=== PATIENT | male | born 1965 | race Caucasian/White ===

== ENCOUNTER 2018-04-27 21:54 | Emergency (ER) | payer BC ==
--- NOTE | 2018-04-27 22:55 | RAD ---
RIGHT ANKLE: 04/27/18 Three views. HISTORY: Injury. Oblique fracture of the distal fibula. Transverse displaced fracture of the medial malleolus. I cannot exclude subtle fracture of the posterior malleolus. IMPRESSION: Fractures of lateral and medial malleolus. Question posterior malleolar fracture. POS: [facility]
[2018-04-27] MEDS ORDERED: traMADol HCl 50 MG TAB ONE (23:10)
[2018-04-27] MEDS ORDERED: Ibuprofen 800 MG TAB ONE (23:11)
--- NOTE | 2018-04-27 23:40 | RAD ---
RIGHT TIBIA AND FIBULA: 04/27/18 INDICATION: Injury. IMPRESSION: There is an obliquely oriented fracture involving the distal fibula with mild displacement. Fracture of the medial malleolus of the distal tibia is better seen on ankle films. There is a question of a p osterior malleolar fracture as noted on ankle films. The proximal and mid tibia and fibula are intact . POS: [facility]
[2018-04-28] MEDS ORDERED: Morphine 4 MG/ML VIAL ONE (00:05)
== END 2018-04-28 00:44 | disposition home or self-care (01) ==
LOC: ERS 21:54
DX: S82.841A Displaced bimalleolar fracture of right lower leg, initial encounter for closed fracture (principal); V00.131A Fall from skateboard, initial encounter; Y93.51 Activity, roller skating (inline) and skateboarding
CPT/HCPCS: 29515; 96372; J2270

== ENCOUNTER 2018-05-03 09:31 | Day surgery (SDC) | payer BC ==
[2018-05-02 11:27] VITALS: BMI 30.8
[2018-05-03] MEDS ORDERED: Fentanyl 100 MCG/2 ML VIAL ONE (10:22)
[2018-05-03] MEDS ORDERED: Midazolam HCl 2 mg/2 ml Vial ONE (10:22)
[2018-05-03 10:29] LABS: #Eosinphils 0.1 thou/uL (0.0-0.7); #Lymphocytes 1.8 thou/uL (1.20-3.40); #Monocytes 0.7 thou/uL (0.11-0.59); #Neutrophils 6.4 thou/uL (1.40-6.50); %Basophils 0.3 % (0.0-1.0); %Eosinophils 1.1 % (0.0-10.0); %Lymphocytes 20.1 % (21.0-51.0); %Monocytes 8.2 % (0.0-10.0); %Neutrophils 70.3 % (42.0-75.0); Hemoglobin 16.1 g/dL (14.0-18.0); Mean Corpuscular HGB CONC 33.5 g/dL (32.0-36.0); Mean Corpuscular Hemoglobin 30.8 pg (27.0-31.0); Mean Corpuscular Volume 92.1 fL (78.0-98.0); Mean Platelet Volume 7.1 fL (7.4-10.4); Platelet Count 411 thou/uL (130-400); RBC Distribution Width 11.6 % (11.5-14.5); Red Blood Cell (RBC) Count 5.22 mill/uL (4.70-6.10); White Blood Cell (WBC) Count 9.1 thou/uL (4.8-10.8)
[2018-05-03] MEDS ORDERED: CEFAZOLIN 2 GM/50 ML BAG ONE (11:02)
[2018-05-03] MEDS ORDERED: Ropivacaine 0.2% 550 ML 550 ML NERVE BLCK SCH ×2 (11:20→11:21)
[2018-05-03] MEDS ORDERED: traMADol HCl 50 MG TAB PO PRN ×2 (11:20)
[2018-05-03] MEDS ORDERED: Ketorolac Tromethamine 30 MG/ML VIAL IVP PRN (11:20)
[2018-05-03] MEDS ORDERED: Zolpidem Tartrate 5 MG TAB PO PRN (11:20)
[2018-05-03] MEDS ORDERED: HYDROcodone/Acetaminophen 10/325 mg Tablet PO PRN ×2 (11:20)
[2018-05-03] MEDS ORDERED: Ondansetron PF 4 MG/2 ML Vial IVP PRN (11:20)
[2018-05-03] MEDS ORDERED: Promethazine HCl 25 MG/ML VIAL IM PRN (11:20)
[2018-05-03] MEDS ORDERED: Fentanyl 100 MCG/2 ML VIAL IV PRN (11:21)
[2018-05-03] MEDS ORDERED: ROPIVACAINE HCL NERVE BLCK SCH ×2 (15:15→15:45)
[2018-05-03] MEDS ORDERED: SODIUM CHLORIDE 0.9% NERVE BLCK SCH ×2 (15:15→15:45)
[2018-05-03] MEDS ORDERED: Ropivacaine 0.5% HCl/PF (150 MG/30 ML VIAL) ONE (15:25)
[2018-05-03] MEDS ORDERED: Ropivacaine 0.2% HCl/PF (40 MG/20 ML VIAL) ONE (15:25)
--- NOTE | 2018-05-03 15:45 | RAD ---
RIGHT ANKLE TWO VIEWS: HISTORY: Fractures of the medial and lateral malleoli. FINDINGS/IMPRESSION: Two spot fluoroscopic intraoperative images of the right ankle demonstrate interval reduction and int ernal fixation of the bimalleolar fractures seen on exam of 04/27/18. POS: [facility]
[2018-05-03] MEDS ORDERED: Lidocaine 1% PF 5 ML VIAL ONE (22:51)
[2018-05-03] MEDS ORDERED: PROPOFOL 200 MG/20 ML VIAL ONE (22:51)
--- NOTE | 2018-05-04 06:14 | OP ---
DATE OF PROCEDURE: 05/03/2018 PREOPERATIVE DIAGNOSIS: Right bimalleolar ankle fracture. POSTOPERATIVE DIAGNOSIS: Right trimalleolar ankle fracture. PROCEDURES PERFORMED: 1. Open reduction and internal fixation of bimalleolar ankle fracture, closed treatment of posterior malleolus. 2. Short-leg splints. ETHICS MANAGER: Michael Palacio PA-C. ANESTHESIOLOGIST: Dr. Thomas. ANESTHESIA: The patient received LMA with a lateral sciatic and an adductor canal, indwelling catheter. ESTIMATED BLOOD LOSS: 30 mL. TOURNIQUET TIME: 60 minutes at 300 mmHg. ANTIBIOTICS: Ancef 2 g. IMPLANTS: 7-hole 1/3 tubular plate with three 4.0 cancellous screws, four 3.5 cortical screws, and two 3.5 cannulated screws. COMPLICATIONS: None. HISTORY OF PRESENT ILLNESS: Mr. Loredo is a pleasant 52-year-old male, status post injury to the ankle while roller-skating. The date of injury was last week on Monday night. On 04/27/2018, the patient was brought into the clinic and noted to have a bimalleolar ankle fracture, concerned for posttraumatic fracture. I discussed with the patient the risks and benefits of open reduction and internal fixation of his bimalleolar ankle fracture to include pain, scar, bleeding, infection, damage to vital structures, decreased range of motion and strength, continued pain despite surgical intervention, nonunion, malunion, hardware failure, and need for further surgery. He understood these risks and benefits and elected to proceed. DESCRIPTION OF PROCEDURE: Time-out was performed designating the patient's right lower extremity as the operative site, based on site, consents, and markings. After time-out, the patient's right lower extremity was prepped and draped in a sterile fashion. Tourniquet was let up and left for a total of 60 minutes. I made a lateral incision down to the fibula, so i obliques, spiral moving from proximally, posterior to anterior. We clamped across, placed a lag screw for compression of the fracture fragment with 22 mm 3.5 screw. We drilled. We then came back with a plate and placed three 3.5 cortical proximally and three 4.0 distally. We then moved medially obliquely down through skin, bluntly dissected, ensured we stayed away from the vein, came down onto the fracture fragment and elevated it, removed the clot. We used a drill hole and clamped and compressed across. We invested couple of pin tags. We already had good placement with 2 pins. Using our cannulated guide, we then drilled for two 3.5 and placed two 3.5 cannulated screws for medial malleolus fracture. The posterior malleolus was noted on the radiographs, but it was a small fragment, much less than 5% of the joint line and was left, treated nonoperatively. We then washed, closed with 0, 2-0 and pham. The patient was placed in a short-leg splint. He will be nonweightbearing. Follow up me in about 10 to 14 days. Ice, elevation; will be sent home with [place] for pain relief. Job ID: [id number]
== END 2018-05-03 17:36 | disposition home or self-care (01) ==
LOC: SDC 09:31
PROVIDERS: ATTEND Orthopaedic Surgery
PROC: 0QSJ04Z Reposition Right Fibula with Internal Fixation Device, Open Approach (ICD-10-PCS; principal; 2018-05-03)
PROC: 0QSG04Z Reposition Right Tibia with Internal Fixation Device, Open Approach (ICD-10-PCS; principal; 2018-05-03)
DX: S82.841A Displaced bimalleolar fracture of right lower leg, initial encounter for closed fracture (principal); M19.90 Unspecified osteoarthritis, unspecified site; Y93.51 Activity, roller skating (inline) and skateboarding; Z98.890 Other specified postprocedural states
CPT/HCPCS: 76001; 85025; A4306; C1713; C1769; J2001; J2250; J2704; J2795; J3010; J7050

== ENCOUNTER 2020-01-27 14:49 | Outpatient (CLI) | payer BC ==
--- NOTE | 2020-01-27 16:37 | CT ---
CT CERVICAL SPINE WITHOUT CONTRAST: Date: 01/27/2020 INDICATION: Neck pain. Right arm pain. FINDINGS: Postoperative changes are noted with anterior fusion changes at C5, C6, and C7. Anterior plate and sc rews transfix these levels and interbody fusion is noted. No evidence of hardware loosening. There is prominent spondylosis at C6-7. The other cervical vertebra maintain height and alignment. The other disc spaces are preserved. Findings at each level are described: C2-3: No significant disc bulge or spondylosis. C3-4: Mild disc bulge and spondylosis efface the anterior subarachnoid space and abut the anterior c ord. Mild right foraminal narrowing due to uncinate hypertrophy. C4-5: Disc bulge and spondylytic change abut the anterior cord centrally. There is a small anterior spur indenting the anterior cord. This small osteophyte projects from the posterior aspect of the C5 vertebra just below the C4-5 disc. No significant foraminal stenosis at C4-5. C5-6: Mild spondylosis without cord impingement. No significant foraminal stenosis. C6-7: Posterior spondylosis is more pronounced and these changes appear to mildly compress the anter ior cord. No significant foraminal stenosis. C7-T1: Exam is more limited due to artifact from the shoulders. However, there appears to be mild sp ondylosis without evidence of cord impingement. No foraminal stenosis. IMPRESSION: 1. Postop changes at C5, C6, and C7 as described above. Spondylosis at these levels impinge on the c ord, most pronounced at C6 and C6-7. There is a posterior osteophyte from the C6 vertebra just above the C6-7 disc that impinges on the anterior cord. 2. Tiny osteophyte at C5 just below the C4-5 disc space abuts the anterior cord as described above. POS: [facility]
== END 2020-01-27 14:50 | disposition home or self-care (01) ==
LOC: BICCT 14:49
PROVIDERS: ATTEND Surgery
DX: M50.10 Cervical disc disorder with radiculopathy, unspecified cervical region (principal); M48.02 Spinal stenosis, cervical region; M47.22 Other spondylosis with radiculopathy, cervical region; M25.78 Osteophyte, vertebrae; Z98.890 Other specified postprocedural states
CPT/HCPCS: 72125

== ENCOUNTER 2020-02-24 08:23 | Outpatient (CLI) | payer BC, OTHER ==
[2020-02-24 16:57] LABS: Hemoglobin 15.1 g/dL (14.0-18.0); Mean Corpuscular HGB CONC 33.7 g/dL (32.0-36.0); Mean Corpuscular Hemoglobin 31.9 pg (27.0-31.0); Mean Corpuscular Volume 94.9 fL (78.0-98.0); Mean Platelet Volume 7.8 fL (7.4-10.4); Platelet Count 288 thou/uL (130-400); RBC Distribution Width 11.2 % (11.5-14.5); Red Blood Cell (RBC) Count 4.71 mill/uL (4.70-6.10); White Blood Cell (WBC) Count 6.6 thou/uL (4.8-10.8)
[2020-02-24 16:59] LABS: INR-International Normal Ratio 0.9; PTT 30.7 sec (22.9-36.1); Prothrombin Time 12.4 sec (12.0-14.7)
[2020-02-24 18:09] LABS: Anion Gap 14 mmol/L (10-20); BUN (Urea Nitrogen) 18 mg/dL (8.4-25.7); Calc. Creatinine Clearance 0 mL/min (70-130); Calcium 9.1 mg/dL (7.8-10.44); Carbon Dioxide 23 mmol/L (22-29); Chloride 107 mmol/L (98-107); Estimated GFR-MDRD 69; Glucose 122 mg/dL (70-105); Sodium 140 mmol/L (136-145)
--- NOTE | 2020-02-25 09:05 | EKG ---
Test Reason : Blood Pressure : / mmHG Vent. Rate : 067 BPM Atrial Rate : 067 BPM P-R Int : 168 ms QRS Dur : 100 ms QT Int : 398 ms P-R-T Axes : 043 030 033 degrees QTc Int : 420 ms Normal sinus rhythm Normal ECG No previous ECGs available Confirmed by DR. Andrzej VERGARA ([id number]) on 02/25/2020 9:05:38 AM Referred By: DALI Confirmed By:DR. Andrzej VERGARA
[2020-02-26 12:10] LABS: SARS-CoV-2 MS2 Positive; SARS-CoV-2 N Gene Negative; SARS-CoV-2 S Gene Negative; SARS-CoV-2 by NAA Not Detected (NotDetected); SARS-CoV-2 orf1ab Negative
== END 2020-02-24 08:24 | disposition home or self-care (01) ==
LOC: LABBT 08:23
PROVIDERS: ATTEND Surgery
DX: Z01.818 Encounter for other preprocedural examination (principal); M50.20 Other cervical disc displacement, unspecified cervical region; M48.02 Spinal stenosis, cervical region; Z20.828 Contact with and (suspected) exposure to other viral communicable diseases
CPT/HCPCS: 80048; 85027; 85610; 85730; 87635; 93005; 93010; U0003

== ENCOUNTER 2020-02-24 14:00 | Inpatient (IN) | payer BC, OTHER ==
[2020-02-26 12:15] VITALS: BMI 29.9
[2020-02-27] MEDS ORDERED: Fentanyl 100 MCG/2 ML VIAL ONE ×2 (07:13→08:34)
[2020-02-27] MEDS ORDERED: HYDROmorphone 0.5 MG/0.5 ML SYRINGE ONE (07:14)
[2020-02-27] MEDS ORDERED: Thrombin 5000 UNITS/5 ML VIAL ONE (07:52)
[2020-02-27] MEDS ORDERED: Famotidine/PF 20 mg/2ml Vial ONE (08:34)
[2020-02-27] MEDS ORDERED: Midazolam HCl 2 mg/2 ml Vial ONE (08:34)
[2020-02-27] MEDS ORDERED: Promethazine HCl 25 MG/ML VIAL SLOW IVP PRN (10:41)
[2020-02-27] MEDS ORDERED: Promethazine HCl 25 MG/ML VIAL IM PRN ×2 (10:41→11:16)
[2020-02-27] MEDS ORDERED: HYDROmorphone 2 MG/ML VIAL SLOW IVP PRN (10:41)
[2020-02-27] MEDS ORDERED: Ondansetron HCl/PF 4 MG/2 ML Vial IVP PRN (10:41)
[2020-02-27] MEDS ORDERED: PACU-Morphine 4MG/ML VIAL SLOW IVP PRN (10:41)
[2020-02-27] MEDS ORDERED: traMADol HCl 50 MG TAB PO PRN (11:16)
[2020-02-27] MEDS ORDERED: diphenhydrAMINE 25 MG CAP PO PRN (11:16)
[2020-02-27] MEDS ORDERED: Acetaminophen 325 MG TAB PO PRN (11:16)
[2020-02-27] MEDS ORDERED: Morphine 2 MG/ML VIAL SLOW IVP PRN (11:16)
[2020-02-27] MEDS ORDERED: HYDROcodone/Acetaminophen 7.5/325 mg Tablet PO PRN (11:16)
[2020-02-27] MEDS ORDERED: tiZANidine HCl 4 MG TAB PO PRN (11:16)
[2020-02-27] MEDS ORDERED: Acetaminophen/Codeine 30-300mg Tablet PO PRN (11:16)
[2020-02-27] MEDS ORDERED: Ondansetron PF 4 MG/2 ML Vial IVP PRN (11:16)
[2020-02-27] MEDS ORDERED: Rocuronium Bromide 10 MG/ML (10ML VIAL) ONE (12:32)
[2020-02-27] MEDS ORDERED: EPHEDRINE 25 MG/5 ML SYRINGE ONE (12:32)
[2020-02-27] MEDS ORDERED: Ondansetron PF 4 MG/2 ML Vial ONE (12:32)
[2020-02-27] MEDS ORDERED: PROPOFOL 200 MG/20 ML VIAL ONE (12:32)
[2020-02-27] MEDS ORDERED: Glycopyrrolate 0.2 MG/ML 5 ML SYRINGE ONE (12:32)
[2020-02-27] MEDS ORDERED: Lidocaine 1% PF 5 ML VIAL ONE (12:32)
[2020-02-27] MEDS ORDERED: Dexamethasone 20 MG/5 ML VIAL ONE (12:32)
[2020-02-27] MEDS ORDERED: Ketorolac Tromethamine 30 MG/ML VIAL ONE (12:32)
[2020-02-27] MEDS: Sodium Chloride 0.9% 1,000 ML IV SCH (17:23)
[2020-02-27] MEDS: CEFAZOLIN 2 GM in Premix Bag 1 BAG IVPB SCH ×2 (17:24→23:24)
[2020-02-27] MEDS: Gabapentin 300 MG CAP PO SCH (20:02)
[2020-02-28] MEDS: Sodium Chloride 0.9% 1,000 ML IV SCH (01:05)
[2020-02-28] MEDS: CEFAZOLIN 2 GM in Premix Bag 1 BAG IVPB SCH (07:49)
[2020-02-28] MEDS: Gabapentin 300 MG CAP PO SCH (07:49)
--- NOTE | 2020-02-28 10:15 | PRG ---
DATE OF SERVICE: 02/28/2020 Mr. Loredo is doing well, postoperative day 1. He has resolution of his arm pain. He is going home. Job ID: [id number]
--- NOTE | 2020-02-28 10:57 | OP ---
DATE OF PROCEDURE: 02/27/2020 LOCATION: OR-11. 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 PROCEDURE PERFORMED: 1. Removal of plate, C5-C6 and C6-C7, and assessment of fusion. 2. Anterior cervical diskectomy and interbody fusion, C7-T1. 3. Removal of disk and placement of interbody spacer, packed with local bone autograft obtained from same incision and allograft separate from the plate for arthrodesis initiation. 4. Anterior cervical plate and screw fixation, C7-T1. 5. Use of operative microscope for microdissection. DESCRIPTION OF PROCEDURE: After informed consent was obtained from the patient, the patient was brought to the OR. Proper patient, pause, and identification were carried out. He was placed under excellent general endotracheal anesthesia and positioned supine on the OR table. Right oblique rivas was identified and allowed for approach to the C5 through T1 segments. This area was sterilely cleansed, prepared, and draped. Proper patient, pause, and identification were carried out. The wound was then opened with a combination of sharp, monopolar, and blunt dissection. Then we proceeded lateral to the tracheoesophageal bundle and medial to the right carotid sheath. I the scar tissue in a C5 through C7 plate screw construct. The plate was removed. Fusion was assessed intraoperatively. At C5-C6 and C6-C7, there was no intersegmental motion. I then turned our attention to C7-T1 exposure. Distraction at C7-T1 then occurred. The microscope was then brought in. Distraction at C7-T1 occurred with microdissection. A C7-T1 diskectomy was performed. Decompression of spinal cord and bilateral C8 nerve roots. Disk material was removed from the right C8 foramen. The endplates were prepared and interbody spacer separate from the plate, packed with autograft, and allograft was placed at C7-T1 for arthrodesis initiation. Anterior cervical plate and screw fixation at C7-T1 then occurred. Once microscope was removed with final tightening, copious irrigation occurred throughout as did maximizing hemostasis. The wound was then closed in anatomic layers following the placement of a drain and copious irrigation. The patient then emerged from anesthesia. Job ID: [id number]
[2020-02-28 13:49] VITALS: BP 136/74; TEMP 98.8
== END 2020-02-28 14:18 | disposition home or self-care (01) | DRG 473 ==
LOC: SURG A 02-27 07:04 → SJJU 02-27 13:55 → EDSTATUS 02-27 14:00
PROVIDERS: ADMIT Surgery; ATTEND Surgery
PROC: 0RG40A0 Fusion of Cervicothoracic Vertebral Joint with Interbody Fusion Device, Anterior Approach, Anterior Column, Open Approach (ICD-10-PCS; principal; 2020-02-27)
PROC: 0RB30ZZ Excision of Cervical Vertebral Disc, Open Approach (ICD-10-PCS; 2020-02-27)
PROC: 00NW0ZZ Release Cervical Spinal Cord, Open Approach (ICD-10-PCS; 2020-02-27)
PROC: 01N10ZZ Release Cervical Nerve, Open Approach (ICD-10-PCS; 2020-02-27)
PROC: 0RP104Z Removal of Internal Fixation Device from Cervical Vertebral Joint, Open Approach (ICD-10-PCS; 2020-02-27)
DX: M50.13 Cervical disc disorder with radiculopathy, cervicothoracic region (principal); M48.02 Spinal stenosis, cervical region; Z20.828 Contact with and (suspected) exposure to other viral communicable diseases; Z79.899 Other long term (current) drug therapy
CPT/HCPCS: 76000; 80048; 85027; 85610; 85730; 87635; 93005; C1713; C1776; J0690; J1100; J1170; J1885; J2250; J2405; J2704; J3010; S0028; U0003

== ENCOUNTER 2020-04-14 11:24 | Outpatient (CLI) | payer BC ==
--- NOTE | 2020-04-14 13:31 | RAD ---
CERVICAL SPINE 2 VIEWS: HISTORY: Cervical radiculopathy. Postop. FINDINGS: Anterior late and screws at C7-T1 which is incompletely evaluated on the lateral view. Prior cervica l fusion at the C5-6 and C6-7 levels. Disk spaces are preserved at C2-3, C3-4, and C4-5. Mild to mo derate degenerative changes. IMPRESSION: Degenerative and postoperative changes cervical spine as described. Anterior plate and screws at C7- T1 not adequately evaluated in the lateral projection. POS: [facility]
== END 2020-04-14 11:25 | disposition home or self-care (01) ==
LOC: BICRAD 11:24
PROVIDERS: ATTEND Surgery
DX: M47.22 Other spondylosis with radiculopathy, cervical region (principal); M48.02 Spinal stenosis, cervical region; Z98.890 Other specified postprocedural states
CPT/HCPCS: 72040